=== PATIENT | female | born 1945 | race Two or more races ===

== ENCOUNTER 2017-07-15 09:12 | Outpatient (CLI) | payer OTHER | END 2017-07-15 09:16 | disposition home or self-care (01) | LOC: LAB 09:12 | DX: C85.98 Non-Hodgkin lymphoma, unspecified, lymph nodes of multiple sites (principal); D51.8 Other vitamin B12 deficiency anemias; D63.1 Anemia in chronic kidney disease; D51.3 Other dietary vitamin B12 deficiency anemia; N60.82 Other benign mammary dysplasias of left breast; N60.91 Unspecified benign mammary dysplasia of right breast; N60.11 Diffuse cystic mastopathy of right breast; N60.12 Diffuse cystic mastopathy of left breast; I10 Essential (primary) hypertension; E03.8 Other specified hypothyroidism; E55.9 Vitamin D deficiency, unspecified; K22.4 Dyskinesia of esophagus; K22.2 Esophageal obstruction; D50.8 Other iron deficiency anemias; D55.9 Anemia due to enzyme disorder, unspecified; K90.89 Other intestinal malabsorption ==

== ENCOUNTER → 2017-11-16 | Outpatient (CLI) | payer OTHER | END | disposition home or self-care (01) | LOC: LAB 09:06 | DX: C85.98 Non-Hodgkin lymphoma, unspecified, lymph nodes of multiple sites (principal); D51.8 Other vitamin B12 deficiency anemias; D63.1 Anemia in chronic kidney disease; D51.3 Other dietary vitamin B12 deficiency anemia; N60.82 Other benign mammary dysplasias of left breast; N60.81 Other benign mammary dysplasias of right breast; N60.91 Unspecified benign mammary dysplasia of right breast; N64.89 Other specified disorders of breast; I10 Essential (primary) hypertension; E03.8 Other specified hypothyroidism; E55.9 Vitamin D deficiency, unspecified; K22.4 Dyskinesia of esophagus; K22.2 Esophageal obstruction; D50.8 Other iron deficiency anemias; K90.89 Other intestinal malabsorption; R97.0 Elevated carcinoembryonic antigen [CEA]; R97.8 Other abnormal tumor markers ==

== ENCOUNTER 2018-04-06 09:44 | Outpatient (CLI) | payer OTHER | END 2018-04-06 09:52 | disposition home or self-care (01) | LOC: MAMO-SONO 09:44 | DX: Z12.31 Encounter for screening mammogram for malignant neoplasm of breast (principal); Z87.898 Personal history of other specified conditions; N60.11 Diffuse cystic mastopathy of right breast; N60.12 Diffuse cystic mastopathy of left breast; D49.3 Neoplasm of unspecified behavior of breast ==

== ENCOUNTER 2018-05-24 07:15 | Outpatient (CLI) | payer OTHER | END 2018-05-24 07:20 | disposition home or self-care (01) | LOC: LAB 07:15 | DX: C85.98 Non-Hodgkin lymphoma, unspecified, lymph nodes of multiple sites (principal); D51.8 Other vitamin B12 deficiency anemias; D63.1 Anemia in chronic kidney disease; N60.81 Other benign mammary dysplasias of right breast; N60.82 Other benign mammary dysplasias of left breast; N60.91 Unspecified benign mammary dysplasia of right breast; N63.10 Unspecified lump in the right breast, unspecified quadrant; N63.20 Unspecified lump in the left breast, unspecified quadrant; I10 Essential (primary) hypertension; E03.8 Other specified hypothyroidism; E55.9 Vitamin D deficiency, unspecified; K22.4 Dyskinesia of esophagus; K22.2 Esophageal obstruction; D50.8 Other iron deficiency anemias; R97.0 Elevated carcinoembryonic antigen [CEA]; R97.8 Other abnormal tumor markers ==

== ENCOUNTER 2018-09-20 09:16 | Outpatient (CLI) | payer OTHER | END 2018-09-20 09:30 | disposition home or self-care (01) | LOC: LAB 09:16 | DX: C85.98 Non-Hodgkin lymphoma, unspecified, lymph nodes of multiple sites (principal); D51.8 Other vitamin B12 deficiency anemias; D63.1 Anemia in chronic kidney disease; D51.3 Other dietary vitamin B12 deficiency anemia; N60.82 Other benign mammary dysplasias of left breast; N60.81 Other benign mammary dysplasias of right breast; N60.91 Unspecified benign mammary dysplasia of right breast; I10 Essential (primary) hypertension; E03.8 Other specified hypothyroidism; E55.9 Vitamin D deficiency, unspecified; K22.4 Dyskinesia of esophagus; K22.2 Esophageal obstruction; D50.8 Other iron deficiency anemias; R97.0 Elevated carcinoembryonic antigen [CEA]; R97.8 Other abnormal tumor markers ==

== ENCOUNTER 2019-01-20 07:51 | Outpatient (CLI) | payer OTHER | END 2019-01-20 07:58 | disposition home or self-care (01) | LOC: LAB 07:51 | DX: C85.98 Non-Hodgkin lymphoma, unspecified, lymph nodes of multiple sites (principal); D51.8 Other vitamin B12 deficiency anemias; D63.1 Anemia in chronic kidney disease; D51.3 Other dietary vitamin B12 deficiency anemia; N60.82 Other benign mammary dysplasias of left breast; N60.81 Other benign mammary dysplasias of right breast; N60.91 Unspecified benign mammary dysplasia of right breast; N63.10 Unspecified lump in the right breast, unspecified quadrant; N63.20 Unspecified lump in the left breast, unspecified quadrant; I10 Essential (primary) hypertension; E03.8 Other specified hypothyroidism; E55.9 Vitamin D deficiency, unspecified; K22.4 Dyskinesia of esophagus; K22.2 Esophageal obstruction; D50.8 Other iron deficiency anemias; R97.0 Elevated carcinoembryonic antigen [CEA]; R97.8 Other abnormal tumor markers ==

== ENCOUNTER 2020-02-28 10:02 | Outpatient (CLI) | payer OTHER | END 2020-02-28 10:10 | disposition home or self-care (01) | LOC: CIR.AMB 10:02 → LAB 10:02 → CIR.AMB 10:10 | PROVIDERS: ATTEND Internal Medicine Hematology & Oncology | DX: D50.8 Other iron deficiency anemias (principal); I10 Essential (primary) hypertension; D47.2 Monoclonal gammopathy; C90.00 Multiple myeloma not having achieved remission; C50.919 Malignant neoplasm of unspecified site of unspecified female breast; R97.8 Other abnormal tumor markers; R97.0 Elevated carcinoembryonic antigen [CEA]; C85.98 Non-Hodgkin lymphoma, unspecified, lymph nodes of multiple sites; D51.8 Other vitamin B12 deficiency anemias; D63.1 Anemia in chronic kidney disease; D51.3 Other dietary vitamin B12 deficiency anemia; N60.82 Other benign mammary dysplasias of left breast; N60.81 Other benign mammary dysplasias of right breast; N60.91 Unspecified benign mammary dysplasia of right breast; E03.8 Other specified hypothyroidism; E55.9 Vitamin D deficiency, unspecified; K22.4 Dyskinesia of esophagus ==

== ENCOUNTER 2020-08-29 09:49 | Outpatient (CLI) | payer OTHER | END 2020-08-29 10:02 | disposition home or self-care (01) | LOC: LAB 09:49 | PROVIDERS: ATTEND Internal Medicine Hematology & Oncology | DX: C85.98 Non-Hodgkin lymphoma, unspecified, lymph nodes of multiple sites (principal); E03.8 Other specified hypothyroidism; D51.8 Other vitamin B12 deficiency anemias; E55.9 Vitamin D deficiency, unspecified; D63.1 Anemia in chronic kidney disease; K22.4 Dyskinesia of esophagus; N60.81 Other benign mammary dysplasias of right breast; K22.2 Esophageal obstruction; N60.82 Other benign mammary dysplasias of left breast; D50.8 Other iron deficiency anemias ==

== ENCOUNTER → 2021-02-26 08:12 | Outpatient (CLI) | payer OTHER | END | disposition home or self-care (01) | LOC: LAB 08:12 | PROVIDERS: ATTEND Internal Medicine Hematology & Oncology | DX: D50.8 Other iron deficiency anemias (principal); R79.9 Abnormal finding of blood chemistry, unspecified; I10 Essential (primary) hypertension; R74.02 Elevation of levels of lactic acid dehydrogenase [LDH]; K76.89 Other specified diseases of liver; D51.8 Other vitamin B12 deficiency anemias; C85.98 Non-Hodgkin lymphoma, unspecified, lymph nodes of multiple sites; D63.1 Anemia in chronic kidney disease; D51.3 Other dietary vitamin B12 deficiency anemia; N60.82 Other benign mammary dysplasias of left breast; N60.91 Unspecified benign mammary dysplasia of right breast; N63.0 Unspecified lump in unspecified breast; E03.8 Other specified hypothyroidism; E55.9 Vitamin D deficiency, unspecified; K22.4 Dyskinesia of esophagus; K22.2 Esophageal obstruction ==

== ENCOUNTER 2021-06-19 11:11 | Outpatient (CLI) | payer OTHER | END 2021-06-19 11:12 | disposition home or self-care (01) | LOC: LAB 11:11 | PROVIDERS: ATTEND Internal Medicine Hematology & Oncology | DX: D50.8 Other iron deficiency anemias (principal); R79.9 Abnormal finding of blood chemistry, unspecified; I10 Essential (primary) hypertension; R74.02 Elevation of levels of lactic acid dehydrogenase [LDH]; K76.89 Other specified diseases of liver; D51.8 Other vitamin B12 deficiency anemias; E55.9 Vitamin D deficiency, unspecified; D63.1 Anemia in chronic kidney disease; E03.9 Hypothyroidism, unspecified; K22.4 Dyskinesia of esophagus; K22.2 Esophageal obstruction ==

== ENCOUNTER → 2021-06-21 09:48 | Outpatient (CLI) | payer OTHER | END | disposition home or self-care (01) | LOC: LAB 09:48 | PROVIDERS: ATTEND Internal Medicine Hematology & Oncology | DX: D50.8 Other iron deficiency anemias (principal); R79.9 Abnormal finding of blood chemistry, unspecified; R74.02 Elevation of levels of lactic acid dehydrogenase [LDH]; K76.89 Other specified diseases of liver; D51.8 Other vitamin B12 deficiency anemias; E55.9 Vitamin D deficiency, unspecified; D63.1 Anemia in chronic kidney disease; E03.8 Other specified hypothyroidism; N18.9 Chronic kidney disease, unspecified; R97.0 Elevated carcinoembryonic antigen [CEA]; R97.8 Other abnormal tumor markers; C85.98 Non-Hodgkin lymphoma, unspecified, lymph nodes of multiple sites; D51.3 Other dietary vitamin B12 deficiency anemia; N60.82 Other benign mammary dysplasias of left breast; N60.81 Other benign mammary dysplasias of right breast; N60.91 Unspecified benign mammary dysplasia of right breast; E03.9 Hypothyroidism, unspecified; K22.4 Dyskinesia of esophagus; K22.2 Esophageal obstruction ==

== ENCOUNTER 2021-12-30 09:58 | Outpatient (CLI) | payer OTHER | END 2021-12-30 10:09 | disposition home or self-care (01) | LOC: LAB 09:58 | PROVIDERS: ATTEND Internal Medicine Hematology & Oncology | DX: D50.8 Other iron deficiency anemias (principal); R79.9 Abnormal finding of blood chemistry, unspecified; I10 Essential (primary) hypertension; R74.02 Elevation of levels of lactic acid dehydrogenase [LDH]; K76.89 Other specified diseases of liver; D51.8 Other vitamin B12 deficiency anemias; E55.9 Vitamin D deficiency, unspecified; E03.8 Other specified hypothyroidism; D47.2 Monoclonal gammopathy; C90.00 Multiple myeloma not having achieved remission; C85.98 Non-Hodgkin lymphoma, unspecified, lymph nodes of multiple sites; D51.3 Other dietary vitamin B12 deficiency anemia; N60.82 Other benign mammary dysplasias of left breast; N60.91 Unspecified benign mammary dysplasia of right breast; N63.0 Unspecified lump in unspecified breast; E03.9 Hypothyroidism, unspecified; K22.4 Dyskinesia of esophagus; K22.2 Esophageal obstruction; D63.1 Anemia in chronic kidney disease ==

== ENCOUNTER 2022-05-27 11:42 | Outpatient (CLI) | payer OTHER | END 2022-05-27 11:44 | disposition home or self-care (01) | LOC: LAB 11:42 | PROVIDERS: ATTEND Internal Medicine Hematology & Oncology | DX: D50.8 Other iron deficiency anemias (principal); R79.9 Abnormal finding of blood chemistry, unspecified; I10 Essential (primary) hypertension; R74.02 Elevation of levels of lactic acid dehydrogenase [LDH]; K76.89 Other specified diseases of liver; D51.8 Other vitamin B12 deficiency anemias; D47.2 Monoclonal gammopathy; C90.00 Multiple myeloma not having achieved remission; C85.98 Non-Hodgkin lymphoma, unspecified, lymph nodes of multiple sites; D63.1 Anemia in chronic kidney disease; D51.3 Other dietary vitamin B12 deficiency anemia; N60.82 Other benign mammary dysplasias of left breast; N60.91 Unspecified benign mammary dysplasia of right breast; N63.0 Unspecified lump in unspecified breast; E03.9 Hypothyroidism, unspecified; E55.9 Vitamin D deficiency, unspecified; K22.4 Dyskinesia of esophagus; K22.2 Esophageal obstruction; M91.0 Juvenile osteochondrosis of pelvis ==

== ENCOUNTER 2022-11-27 09:12 | Outpatient (CLI) | payer OTHER | END 2022-11-27 09:13 | disposition home or self-care (01) | LOC: LAB 09:12 | PROVIDERS: ATTEND Internal Medicine Hematology & Oncology | DX: D50.8 Other iron deficiency anemias (principal); R79.9 Abnormal finding of blood chemistry, unspecified; I10 Essential (primary) hypertension; R74.02 Elevation of levels of lactic acid dehydrogenase [LDH]; K76.89 Other specified diseases of liver; D51.8 Other vitamin B12 deficiency anemias; E03.8 Other specified hypothyroidism; R97.0 Elevated carcinoembryonic antigen [CEA]; R97.8 Other abnormal tumor markers; C85.98 Non-Hodgkin lymphoma, unspecified, lymph nodes of multiple sites; C51.8 Malignant neoplasm of overlapping sites of vulva; D63.1 Anemia in chronic kidney disease; D51.3 Other dietary vitamin B12 deficiency anemia; N60.82 Other benign mammary dysplasias of left breast; N60.81 Other benign mammary dysplasias of right breast; N60.91 Unspecified benign mammary dysplasia of right breast; N63.0 Unspecified lump in unspecified breast; E55.9 Vitamin D deficiency, unspecified; K22.4 Dyskinesia of esophagus; K22.2 Esophageal obstruction; M81.0 Age-related osteoporosis without current pathological fracture ==

== ENCOUNTER 2022-12-25 08:47 | Outpatient (CLI) | payer OTHER | END 2022-12-25 08:54 | disposition home or self-care (01) | LOC: TOM 08:47 | PROVIDERS: ATTEND Internal Medicine Hematology & Oncology | DX: R97.0 Elevated carcinoembryonic antigen [CEA] (principal); K59.00 Constipation, unspecified; R63.4 Abnormal weight loss; Z85.72 Personal history of non-Hodgkin lymphomas | CPT/HCPCS: 71260; 74177; Q9965 ==

== ENCOUNTER → 2023-06-25 09:56 | Outpatient (CLI) | payer OTHER ==
[2023-06-25 11:30] LABS: HEMATOCRIT 33.6 % (36.0-45.00); HEMOGLOBIN 11.4 g/dL (12.0-15.00); MEAN CELL VOLUME 90.7 fL (80.00-100.00); MEAN CORPUSCULAR HEMOGLOBIN 30.8 pg (27.00-32.0); PLATELET COUNT 177 K/uL (150-450)
[2023-06-25 11:52] LABS: % SATURACION 35.7 % (15-50); ALBUMIN 3.8 gm/dL (3.4-5.0); BILIRUBIN TOTAL 0.68 mg/dL (0.3-1.2); BILIRUBIN,CONJUGATED 0.15 mg/dL (0.0-0.2); BILIRUBIN,UNCONJUGATED 0.53 mg/dL (0.0-0.6); CALCIUM 9.2 mg/dL (8.5-10.1); CREATININE SERUM 0.88 mg/dL (0.55-1.02); FERRITIN 240.4 NG/ML (8-252); GFR 61.83; POTASSIUM 4.23 mEq/L (3.5-5.1); TOTAL PROTEIN 7.3 gm/dL (6.4-8.2)
[2023-06-25 14:05] LABS: FOLIC ACID > 20.00 ng/ml (4.78-20)
[2023-06-26 10:08] LABS: CA 125 11.6 U/mL (0.0-38.1); CA 15-3 11.8 U/mL (0.0-25.0); CA 19-9 < 2 U/mL (0-35)
== END | disposition home or self-care (01) ==
LOC: LAB 09:56
PROVIDERS: ATTEND Internal Medicine Hematology & Oncology
DX: C85.98 Non-Hodgkin lymphoma, unspecified, lymph nodes of multiple sites (principal); R97.0 Elevated carcinoembryonic antigen [CEA]; D51.8 Other vitamin B12 deficiency anemias; D63.1 Anemia in chronic kidney disease; N60.82 Other benign mammary dysplasias of left breast; N60.81 Other benign mammary dysplasias of right breast; N63.0 Unspecified lump in unspecified breast; I10 Essential (primary) hypertension; E03.9 Hypothyroidism, unspecified; E55.9 Vitamin D deficiency, unspecified; K22.4 Dyskinesia of esophagus; K22.2 Esophageal obstruction; M81.0 Age-related osteoporosis without current pathological fracture

== ENCOUNTER 2023-12-30 09:32 | Outpatient (CLI) | payer OTHER ==
[2023-12-30 10:26] LABS: HEMATOCRIT 34.5 % (36.0-45.00); HEMOGLOBIN 11.8 g/dL (12.0-15.00); MEAN CELL VOLUME 89.7 fL (80.00-100.00); MEAN CORPUSCULAR HEMOGLOBIN 30.6 pg (27.00-32.0); MEAN CORPUSCULAR HGB CONC 34.1 g/dl (32.0-36.0); PLATELET COUNT 182 K/uL (150-450); RED BLOOD COUNT 3.84 M/uL (4.00-6.00); RED CELL DISTRIBUTION WIDTH 14.5 % (11.5-14.5)
[2023-12-30 11:20] LABS: ALBUMIN 4.1 gm/dL (3.4-5.0); BILIRUBIN TOTAL 0.66 mg/dL (0.3-1.2); BILIRUBIN,CONJUGATED 0.16 mg/dL (0.0-0.2); BILIRUBIN,UNCONJUGATED 0.5 mg/dL (0.0-0.6); CALCIUM 9.4 mg/dL (8.5-10.1); CREATININE SERUM 0.9 mg/dL (0.55-1.02); GFR 60.24; POTASSIUM 4.27 mEq/L (3.5-5.1); TOTAL PROTEIN 7.9 gm/dL (6.4-8.2)
[2023-12-31 13:52] LABS: FOLIC ACID > 20.00 ng/ml (4.78-20); VITAMIN D3 25 HYDROXY 39.78 ng/ml (30-120)
[2024-01-01 12:06] LABS: CA 125 17.7 U/mL (0.0-38.1); CA 15-3 13.8 U/mL (0.0-25.0); CA 19-9 < 2 U/mL (0-35)
== END 2023-12-30 09:37 | disposition home or self-care (01) ==
LOC: LAB 09:32
PROVIDERS: ATTEND Internal Medicine Hematology & Oncology
DX: C85.98 Non-Hodgkin lymphoma, unspecified, lymph nodes of multiple sites (principal); R97.0 Elevated carcinoembryonic antigen [CEA]; D51.8 Other vitamin B12 deficiency anemias; D63.1 Anemia in chronic kidney disease; D51.3 Other dietary vitamin B12 deficiency anemia; N60.81 Other benign mammary dysplasias of right breast; N60.82 Other benign mammary dysplasias of left breast; N60.91 Unspecified benign mammary dysplasia of right breast; N63 Unspecified lump in breast; I10 Essential (primary) hypertension; E03.9 Hypothyroidism, unspecified; E55.9 Vitamin D deficiency, unspecified; K22.4 Dyskinesia of esophagus; K22.2 Esophageal obstruction; M81.0 Age-related osteoporosis without current pathological fracture; R74.02 Elevation of levels of lactic acid dehydrogenase [LDH]; K76.89 Other specified diseases of liver; R97.8 Other abnormal tumor markers

== ENCOUNTER 2024-04-12 10:10 | Outpatient (CLI) | payer OTHER ==
[2024-04-12 10:49] LABS: HEMATOCRIT 35.2 % (36.0-45.00); HEMOGLOBIN 12.4 g/dL (12.0-15.00); MEAN CELL VOLUME 89.4 fL (80.00-100.00); MEAN CORPUSCULAR HEMOGLOBIN 31.4 pg (27.00-32.0); MEAN CORPUSCULAR HGB CONC 35.2 g/dl (32.0-36.0); PLATELET COUNT 167 K/uL (150-450); RED BLOOD COUNT 3.94 M/uL (4.00-6.00); RED CELL DISTRIBUTION WIDTH 14.1 % (11.5-14.5)
[2024-04-12 11:51] LABS: ALBUMIN 4.2 gm/dL (3.4-5.0); BILIRUBIN TOTAL 0.77 mg/dL (0.3-1.2); BILIRUBIN,CONJUGATED 0.2 mg/dL (0.0-0.2); BILIRUBIN,UNCONJUGATED 0.57 mg/dL (0.0-0.6); CALCIUM 9.6 mg/dL (8.5-10.1); CREATININE SERUM 0.88 mg/dL (0.55-1.02); GFR 61.83; POTASSIUM 4.4 mEq/L (3.5-5.1)
== END 2024-04-12 10:14 | disposition home or self-care (01) ==
LOC: LAB 10:10
PROVIDERS: ATTEND Internal Medicine Hematology & Oncology
DX: C85.98 Non-Hodgkin lymphoma, unspecified, lymph nodes of multiple sites (principal); R97.0 Elevated carcinoembryonic antigen [CEA]; D51.8 Other vitamin B12 deficiency anemias; D63.1 Anemia in chronic kidney disease; D51.3 Other dietary vitamin B12 deficiency anemia; N60.82 Other benign mammary dysplasias of left breast; N60.81 Other benign mammary dysplasias of right breast; N60.91 Unspecified benign mammary dysplasia of right breast; N63.0 Unspecified lump in unspecified breast; I10 Essential (primary) hypertension; E03.9 Hypothyroidism, unspecified; E55.9 Vitamin D deficiency, unspecified; K22.4 Dyskinesia of esophagus; K22.2 Esophageal obstruction; M81.0 Age-related osteoporosis without current pathological fracture

== ENCOUNTER → 2024-08-30 08:00 | Outpatient (CLI) | payer OTHER ==
[2024-09-02 09:07] LABS: CA 125 14.2 U/mL (0.0-38.1); CA 15-3 12.4 U/mL (0.0-25.0); CA 19-9 < 2 U/mL (0-35)
== END | disposition home or self-care (01) ==
LOC: LAB 08:00
PROVIDERS: ATTEND Internal Medicine Hematology & Oncology
DX: C85.98 Non-Hodgkin lymphoma, unspecified, lymph nodes of multiple sites (principal); R97.0 Elevated carcinoembryonic antigen [CEA]; D51.8 Other vitamin B12 deficiency anemias; D63.1 Anemia in chronic kidney disease; D51.3 Other dietary vitamin B12 deficiency anemia; N60.81 Other benign mammary dysplasias of right breast; N60.91 Unspecified benign mammary dysplasia of right breast; N63.0 Unspecified lump in unspecified breast; I10 Essential (primary) hypertension; E03.9 Hypothyroidism, unspecified; E55.9 Vitamin D deficiency, unspecified; K22.4 Dyskinesia of esophagus; K22.2 Esophageal obstruction; M81.0 Age-related osteoporosis without current pathological fracture; D50.8 Other iron deficiency anemias; R74.02 Elevation of levels of lactic acid dehydrogenase [LDH]; K76.89 Other specified diseases of liver; D47.2 Monoclonal gammopathy; C90.00 Multiple myeloma not having achieved remission; C50.919 Malignant neoplasm of unspecified site of unspecified female breast; R97.8 Other abnormal tumor markers

== ENCOUNTER 2025-03-01 09:45 | Outpatient (CLI) | payer OTHER ==
[2025-03-01 11:01] LABS: BASO % 0.4 % (0.1-1.2); EOS # 0.03 (0.04-0.54); EOS % 0.7 % (0.7-7.0); LYMPH # 0.99 (1.18-3.74); LYMPH % 21.8 % (19.3-53.1); MEAN PLATELET VOLUME 10.70 fl (9.4-12.4); MONO # 0.38 (0.24-0.82); MONO % 8.4 % (4.7-12.5); NEUT # 3.11 (1.56-6.13); NEUT % 68.5 % (34.0-71.1); RED CELL DISTRIBUTION WIDTH 13.2 % (11.6-14.4)
[2025-03-01 12:01] LABS: % SATURACION 31.4 % (15-50); ALT/SGPT 30.0 U/L (12-78); AST/SGOT 23.0 U/L (15-37); BILIRUBIN TOTAL 0.9 mg/dL (0.3-1.2); BILIRUBIN,CONJUGATED 0.26 mg/dL (0.0-0.2); BUN CREA RATIO 18.0 (7.0-25.0); CREATININE SERUM 0.96 mg/dL (0.55-1.02); FE 77.0 ug/dl (50-170); GFR 55.78; GLUCOSE FASTING 114.0 mg/dL (65-100); LDH 166.0 U/L (84-246); OSMOLALITY SERUM 280.0 MOSM/KG (275-295)
[2025-03-01 13:07] LABS: FOLIC ACID > 20.00 ng/ml (4.78-20)
== END 2025-03-01 09:50 | disposition home or self-care (01) ==
LOC: LAB 09:45
PROVIDERS: ATTEND Internal Medicine Hematology & Oncology
DX: D50.8 Other iron deficiency anemias (principal); I10 Essential (primary) hypertension; R74.02 Elevation of levels of lactic acid dehydrogenase [LDH]; K76.89 Other specified diseases of liver; D47.2 Monoclonal gammopathy; C85.98 Non-Hodgkin lymphoma, unspecified, lymph nodes of multiple sites; R97.0 Elevated carcinoembryonic antigen [CEA]; D51.8 Other vitamin B12 deficiency anemias; D63.1 Anemia in chronic kidney disease; D51.3 Other dietary vitamin B12 deficiency anemia; N60.82 Other benign mammary dysplasias of left breast; N60.81 Other benign mammary dysplasias of right breast; N60.91 Unspecified benign mammary dysplasia of right breast; N63.0 Unspecified lump in unspecified breast; E03.9 Hypothyroidism, unspecified; E55.9 Vitamin D deficiency, unspecified; K22.4 Dyskinesia of esophagus; K22.2 Esophageal obstruction; M81.0 Age-related osteoporosis without current pathological fracture